=== PATIENT | female | born 1975 | race Caucasian/White ===

== ENCOUNTER 2019-06-01 12:33 | Emergency (ER) | payer OTHER ==
[~2019-06-01] VITALS: Ht 152.4 cm; Wt 57.2 kg
[~2019-06-01 12:33] MED LIST: AMOXICILLIN500 MG PO; CHLORHEXIDINE FL1 ML MISC; MOTRIN IB200 MG PO; NORCO 5-325 TA1 EACH PO
== END 2019-06-01 12:56 | disposition home or self-care (01) ==
LOC: ED 12:33
DX: H11.31 Conjunctival hemorrhage, right eye (principal)

== ENCOUNTER 2023-10-08 11:31 | Emergency (ER) | payer OTHER ==
[~2023-10-08] VITALS: Ht 152.4 cm; Wt 53.6 kg
[~2023-10-08 11:31] MED LIST changes: +CELECOXIB200 MG PO; +DOXYCYCLINE MO100 MG PO; +HYDROCODON-ACE1 EA10 PO; +HYDROCODON-ACE1 EA11 PO; +WELLBUTRIN SR150 MG PO
[2023-10-08] MEDS ORDERED: OXYCODONE HCL5 MG PO (12:00)
[2023-10-08] MEDS ORDERED: CYCLOBENZAPRINE10 MG PO (12:00)
[2023-10-08] MEDS ORDERED: ACETAMINOPHEN325 M1 PO (12:00)
[2023-10-08] MEDS ORDERED: LEVOFLOXACIN750 MG PO (12:20)
[2023-10-08] MEDS ORDERED: DOXYCYCLINE HY100 MG PO (12:20)
[2023-10-08 12:30] VITALS: BP 130/99
== END 2023-10-08 12:30 | disposition home or self-care (01) ==
LOC: ED 11:31
DX: N99.89 Other postprocedural complications and disorders of genitourinary system (principal); N61.0 Mastitis without abscess; F41.9 Anxiety disorder, unspecified; F17.200 Nicotine dependence, unspecified, uncomplicated; Z88.0 Allergy status to penicillin; Z88.1 Allergy status to other antibiotic agents; Z79.899 Other long term (current) drug therapy
CPT/HCPCS: 99283

== ENCOUNTER 2024-04-12 08:01 | Emergency (ER) | payer OTHER ==
[~2024-04-12] VITALS: Ht 152.4 cm; Wt 51.7 kg
[~2024-04-12 08:01] MED LIST changes: +ACETAMINOPHEN325 M1 PO; +CYCLOBENZAPRINE10 MG PO; +DOXYCYCLINE HY100 MG PO; +LEVOFLOXACIN750 MG PO; +OXYCODONE HCL5 MG PO
[2024-04-12] MEDS ORDERED: NAPROSYN500 MG PO (08:24)
[2024-04-12 08:30] VITALS: BP 155/109
== END 2024-04-12 08:30 | disposition home or self-care (01) ==
LOC: ED 08:01
DX: M75.21 Bicipital tendinitis, right shoulder (principal); F17.200 Nicotine dependence, unspecified, uncomplicated; Z88.1 Allergy status to other antibiotic agents; Z88.8 Allergy status to other drugs, medicaments and biological substances; Z88.0 Allergy status to penicillin; Z79.899 Other long term (current) drug therapy
CPT/HCPCS: 99283